=== PATIENT | male | born 1965 | race Two or more races ===

== ENCOUNTER 2016-08-31 11:13 | Emergency (ER) | payer BC, OTHER ==
[~2016-08-31] VITALS: Ht 170.2 cm; Wt 80.7 kg
[2016-08-31] MEDS ORDERED: LIDOCAINE 1% / SOD BICARB 8.4% 20 ML VIAL. IJ ONE (12:15)
[2016-08-31] MEDS ORDERED: HYDROCODONE/APAP 5/325MG TABLET. PO ONE (12:15)
[2016-08-31] MEDS ORDERED: DIPHTH,PERTUSS(ACELL),TET TOX 0.5 ML DISP.SYRIN. VAX IM ONE (12:30)
--- NOTE | 2016-08-31 12:35 | RAD ---
Three-view right hand radiographs 08/31/2016 Clinical history: Right hand pain post injury. PA, lateral and oblique digital radiographs of the right hand were obtained. No fracture or dislocation of the right hand is seen. No radiopaque foreign body is noted. Mild degenerative changes are seen scattered throughout the interphalangeal joints of the right hand. Mild degenerative changes are seen involving the radiocarpal joint and first carpometacarpal joint. Impression: No acute fracture or dislocation of the right hand is seen.
--- NOTE | 2016-08-31 13:51 | PHYS DOC ---
Past Medical History Past Medical History: No Pertinent History Past Surgical History: No Surgical History Additional Information: PT REPORTS HE USES CHEWING TOBACCO. Alcohol Use: None Drug Use: None Adult General Chief Complaint Chief Complaint: LACERATION/AVULSION HPI HPI Patient is a 51 year old male who presents with right pinky finger laceration. Patient states he was working with a saw when the saw slipped and cut him on the right pinky finger. Review of Systems Review of Systems Constitutional: Denies fever or chills [] Eyes: Denies change in visual acuity, redness, or eye pain [] HENT: Denies nasal congestion or sore throat [] Musculoskeletal: Denies back pain or joint pain [] Integument: Right pinky finger laceration Neurologic: Denies headache, focal weakness or sensory changes [] Endocrine: Denies polyuria or polydipsia [] Current Medications Current Medications Current Medications Medications (Trade) Dose Ordered Sig/[facility] Start Time Stop Time Status Last Admin Dose Admin Acetaminophen/ Hydrocodone Bitart (Lortab 5/325) 1 tab 1X ONCE 08/31/16 12:15 08/31/16 12:16 DC 08/31/16 12:32 1 TAB Diphtheria/ Tetanus/Acell Pertussis (Boostrix) 0.5 ml ONCE ONCE 08/31/16 12:30 08/31/16 12:31 DC 08/31/16 12:36 0.5 ML Lidocaine/Sodium Bicarbonate (Buffered Lidocaine 1%) 20 ml 1X ONCE 08/31/16 12:15 08/31/16 12:16 DC 08/31/16 12:31 20 ML Allergies Allergies Allergies Coded Allergies Type Severity Reaction Last Updated Verified No Known Drug Allergies 04/18/14 No Physical Exam Physical Exam Constitutional: Well developed, well nourished, no acute distress, non-toxic appearance. [] HENT: Normocephalic, atraumatic, bilateral external ears normal, oropharynx moist, no oral exudates, nose normal. [] Eyes: PERRLA, EOMI, conjunctiva normal, no discharge. [] Skin: Right lateral pinky finger with a laceration approximately 4 cm long, this no tendon involvement. Full range of motion to the right pinky finger, adequate flexion and extension of the right pinky finger MIP, PIP, and DIP joints. +2 right radial pulse. Adequate ulnar sensation to the right pinky finger. Cap refill less than 2 seconds the right pinky finger. Back: No tenderness, no CVA tenderness. [] Extremities: No tenderness, no cyanosis, no clubbing, ROM intact, no edema. [] Neurologic: Alert and oriented X 3, normal motor function, normal sensory function, no focal deficits noted. [] Psychologic: Affect normal, judgement normal, mood normal. [] Current Patient Data Vital Signs Vital Signs Date Time Temp Pulse Resp B/P Pulse Ox O2 Delivery O2 Flow Rate FiO2 08/31/16 12:32 Room Air 08/31/16 11:25 98.3 68 16 99 98.3 EKG EKG [] Radiology/Procedures Radiology/Procedures Indication: []Right pinky finger laceration Procedure: The patient was placed in the appropriate position and anesthesia around the laceration was 1% buffered lidocaine. The laceration was cleaned with 100 ML of normal saline and 30 mL of Betadine. The laceration was closed with 8 interrupted sutures using 5. 0 Ethilon. The laceration was covered with nonstick dressing. Total repaired wound length: Approximately 4 cm long Other Items: None The patient tolerated the procedure well Complications: None Repaired done by me Course & Med Decision Making Course & Med Decision Making Pertinent Labs and Imaging studies reviewed. (See chart for details) Patient has right pinky finger laceration after being cut with a saw. Right hand x-rays interpreted by radiologist are negative for any acute findings. Patient's laceration was closed by me as noted in procedures. He was provided wound care instructions as well as return precautions. Follow-up with PCP or the ED 7-10 days for suture removal. Dragon Disclaimer Dragon Disclaimer This electronic medical record was generated, in whole or in part, using a voice recognition dictation system. Departure Departure Impression: Primary Impression: Laceration of right little finger Disposition: HOME, SELF-CARE Condition: STABLE Referrals: NO PCP (PCP) Follow-up with the ED or primary care doctor in 7-10 days for suture removal Patient Instructions: Laceration Care, Adult Additional Instructions: You have right pinky finger laceration, keep it clean and dry. Apply Neosporin to eat twice a day. Monitor it for signs and symptoms of infection including increased redness warmth or odor drainage from the area and return to the ED if they occur. Follow-up with your doctor or the ED in 7-10 days for suture removal. GISELL MINAYA APRN Aug 31, 2016 13:51
[2016-08-31 13:58] VITALS: BP 122/61
== END 2016-08-31 13:58 | disposition home or self-care (01) ==
LOC: ER 11:13
DX: S61.212A Laceration without foreign body of right middle finger without damage to nail, initial encounter (principal); F17.220 Nicotine dependence, chewing tobacco, uncomplicated; W27.8XXA Contact with other nonpowered hand tool, initial encounter; Y93.89 Activity, other specified; Y99.8 Other external cause status; Y92.89 Other specified places as the place of occurrence of the external cause
CPT/HCPCS: 12002; 73130; 90471; 90715; 99284-25

== ENCOUNTER 2017-03-22 06:10 | Emergency (ER) | payer BC, OTHER ==
[~2017-03-22] VITALS: Ht 170.2 cm; Wt 80.7 kg
--- NOTE | 2017-03-22 07:28 | PHYS DOC ---
Past Medical History Past Medical History: No Pertinent History Past Surgical History: No Surgical History Alcohol Use: None Drug Use: None Adult General Chief Complaint Chief Complaint: Neck Pain HPI HPI Patient is a 51 year old male who presents to the ED complaining of neck pain 2 days. Patient states he woke up with right-sided neck pain. Thinks he may have slept wrong. 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 Describes as sharp, Rates 8/10. Denies trauma, injury, fever , photophobia, dizziness, vision changes, nausea/vomiting, chest pain or shortness of breath. Review of Systems Review of Systems Constitutional: Denies fever or chills [] Eyes: Denies change in visual acuity, redness, or eye pain [] HENT: Denies nasal congestion or sore throat [] Respiratory: Denies cough or shortness of breath [] Cardiovascular: No additional information not addressed in HPI [] GI: Denies abdominal pain, nausea, vomiting, bloody stools or diarrhea [] : Denies dysuria or hematuria [] Musculoskeletal: Denies back pain or joint pain [] Integument: Denies rash or skin lesions [] Neurologic: Denies headache, focal weakness or sensory changes [] Endocrine: Denies polyuria or polydipsia [] Current Medications Current Medications Current Medications Medications (Trade) Dose Ordered Sig/[facility] Start Time Stop Time Status Last Admin Dose Admin Ketorolac Tromethamine (Toradol Im) 60 mg 1X ONCE 03/22/17 07:30 03/22/17 07:31 DC 03/22/17 07:43 60 MG Orphenadrine Citrate (Norflex) 60 mg 1X ONCE 03/22/17 07:30 03/22/17 07:31 DC 03/22/17 07:43 60 MG Allergies Allergies Allergies Coded Allergies Type Severity Reaction Last Updated Verified No Known Drug Allergies 04/18/14 No Physical Exam Physical Exam Constitutional: Well developed, well nourished, no acute distress, non-toxic appearance. [] HENT: Normocephalic, atraumatic, bilateral external ears normal, oropharynx moist, no oral exudates, nose normal. [] Eyes: PERRLA, EOMI, conjunctiva normal, no discharge. [] Neck: MILD RIGHT LATERAL NECK TENDERNESS OVER STERNOCLEIDOMASTOID MUSCLE. DROM TO RIGHT. NO NUCHAL RIGIDITY. supple, no stridor. [] Cardiovascular:Heart rate regular rhythm, no murmur [] Lungs & Thorax: Bilateral breath sounds clear to auscultation [] Abdomen: Bowel sounds normal, soft, no tenderness, no masses, no pulsatile masses. [] Skin: Warm, dry, no erythema, no rash. [] Back: No tenderness, no CVA tenderness. [] Extremities: No tenderness, no cyanosis, no clubbing, ROM intact, no edema. [] Neurologic: Alert and oriented X 3, normal motor function, normal sensory function, no focal deficits noted. [] Psychologic: Affect normal, judgement normal, mood normal. [] Current Patient Data Vital Signs Vital Signs Date Time Temp Pulse Resp B/P (MAP) Pulse Ox O2 Delivery O2 Flow Rate FiO2 03/22/17 10:19 64 18 105/65 (78) 99 Room Air 03/22/17 07:09 98.1 98.1 EKG EKG [] Radiology/Procedures Radiology/Procedures PROCEDURE: CT CERVICAL SPINE WO CONTRAST Examination: CT cervical spine without contrast History: History of neck pain. Comparison: None available Technique: Axial CT images of the cervical spine was performed without contrast. Coronal and sagittal reformats were performed. PQRS Compliance Statement: One or more of the following individualized dose reduction techniques were utilized for this examination: 1. Automated exposure control 2. Adjustment of the mA and/or kV according to patient size 3. Use of iterative reconstruction technique Findings: The vertebral body heights are maintained. No evidence of listhesis identified. The bilateral facets are well aligned. There is no obvious acute fracture identified. The lateral masses of C1 are aligned with C2 vertebra. The C2 dens appears intact. Mild intervertebral disc height loss identified throughout the cervical spine. Tiny lucencies identified in the C2 vertebra, C5 vertebra, C7 vertebral bodies could be osseous demineralization or lytic foci due to multiple myeloma. The apical lungs are clear. Impression: 1. No evidence of fracture. 2. Tiny lucencies identified in the C2 vertebra, C5 vertebra, C7 vertebral bodies could be osseous demineralization or lytic foci due to multiple myeloma. Follow-up nonemergent MRI can be considered. 3. Mild degenerative changes cervical spine.[] Course & Med Decision Making Course & Med Decision Making Pertinent Labs and Imaging studies reviewed. (See chart for details) []Discussed imaging with patient. Will treat for torticollis like symptoms. Patient advised of follow-up with his PCP outpatient for MRI as recommended nonemergently by the radiologist (Language line used) Patient states he has a PCP that he can follow-up with. Patient's pain improved. Vital stable, no acute distress. Discussed the importance of follow-up with patient. Discussed reasons to return to the ED. Patient understands and agrees with plan. Dragon Disclaimer Dragon Disclaimer This electronic medical record was generated, in whole or in part, using a voice recognition dictation system. Departure Departure Impression: Primary Impression: Neck pain Disposition: HOME, SELF-CARE Condition: STABLE Referrals: NO PCP (PCP) SHARIFA DOE MD Patient Instructions: Torticollis, Acute Scripts Hydrocodone/Apap 5-325 (NORCO 5-325 TABLET) 1 Each Tablet 1 TAB PO TID, #10 TAB Prov: ROXANA RAE 03/22/17 ROXANA RAE Mar 22, 2017 07:28
[2017-03-22] MEDS ORDERED: ORPHENADRINE CITRATE 60 MG/2 ML VIAL. IM ONE (07:30)
[2017-03-22] MEDS ORDERED: KETOROLAC 60 MG/2 ML INJ. IM ONE (07:30)
--- NOTE | 2017-03-22 07:44 | RAD ---
Examination: 3 views of the cervical spine History: History of cervical pain Comparison: None available. Findings: The vertebral body heights are maintained. The facets are well aligned. On the lateral view, there is lucency identified in the posterior arch of the C1 vertebra. No evidence of prevertebral soft tissue swelling identified. The lateral masses of C1 appear to align with C2 vertebra. The C2 dens appears intact. Impression: Lucency identified in the posterior arch of the C1 vertebra best seen on the lateral view could be congenital nonfusion or fracture. CT cervical spine may be useful for further evaluation.
--- NOTE | 2017-03-22 09:39 | RAD ---
Examination: CT cervical spine without contrast History: History of neck pain. Comparison: None available Technique: Axial CT images of the cervical spine was performed without contrast. Coronal and sagittal reformats were performed. PQRS Compliance Statement: One or more of the following individualized dose reduction techniques were utilized for this examination: 1. Automated exposure control 2. Adjustment of the mA and/or kV according to patient size 3. Use of iterative reconstruction technique Findings: The vertebral body heights are maintained. No evidence of listhesis identified. The bilateral facets are well aligned. There is no obvious acute fracture identified. The lateral masses of C1 are aligned with C2 vertebra. The C2 dens appears intact. Mild intervertebral disc height loss identified throughout the cervical spine. Tiny lucencies identified in the C2 vertebra, C5 vertebra, C7 vertebral bodies could be osseous demineralization or lytic foci due to multiple myeloma. The apical lungs are clear. Impression: 1. No evidence of fracture. 2. Tiny lucencies identified in the C2 vertebra, C5 vertebra, C7 vertebral bodies could be osseous demineralization or lytic foci due to multiple myeloma. Follow-up nonemergent MRI can be considered. 3. Mild degenerative changes cervical spine.
[2017-03-22] MEDS ORDERED: HYDR-971 PO (09:49)
[2017-03-22 10:19] VITALS: BP 105/65
== END 2017-03-22 10:30 | disposition home or self-care (01) ==
LOC: ER 06:10
DX: M54.2 Cervicalgia (principal)
CPT/HCPCS: 72040; 72125; 96372; 99284; J1885; J2360

== ENCOUNTER → 2017-03-28 | Outpatient (CLI) | payer BC ==
[~2017-03-28] MED LIST: HYDR-971 PO
--- NOTE | 2017-03-28 11:06 | KCIC ---
MRI cervical spine without contrast 03/28/2017 MRI of lumbar spine without contrast INDICATION: Neck pain, abnormal CT. Low back pain. COMPARISON: CT cervical spine March 22, 2017 TECHNIQUE: Multiplanar, multisequence MR imaging of the cervical spine was performed. Multiplanar, multisequence MR imaging of the lumbar spine was performed. FINDINGS: Cervical spine: Alignment of the cervical spine is normal. Vertebral body heights are maintained. No evidence for acute fracture. At C2, C5 and C7, there are T1 hyperintense and T2 hyperintense foci suggestive of tiny osseous hemangiomas. Disc heights are maintained. Cord signal is normal in all sequences. Posterior fossa is normal in appearance. Vertebral artery flow voids are maintained. There is no prevertebral soft tissue swelling. No paraspinal abnormality is identified. C2-C3: Disc is normal in configuration. Facets are normal in appearance. No significant uncovertebral joint arthropathy. No spinal canal stenosis. C3-C4: Minimal posterior disc osteophyte complex asymmetric to the left. No significant facet arthropathy. No uncovertebral joint arthropathy. Mild left neural foraminal stenosis. No spinal canal stenosis. C4-C5: Disc is normal in configuration. No significant facet or uncovertebral joint arthropathy. No neuroforaminal or spinal canal stenosis. C5-C6: Disc is normal in configuration. Facets are normal in appearance. No uncovertebral joint arthropathy. No neuroforaminal or spinal canal stenosis. C6-C7: Disc is normal in configuration. No significant facet or uncovertebral joint arthropathy. No neural foraminal or spinal canal stenosis. C7-T1: Disc is normal in configuration. No significant facet or uncovertebral joint arthropathy. No neuroforaminal or spinal canal stenosis. Lumbar spine: Alignment of the lumbar spine is normal. There is disc desiccation at L4-L5 and L5-S1. The cord terminates at L1. Distal cord signal is normal in all sequences. Vertebral body heights are maintained. No evidence for acute fracture. Modic type II endplate degenerative changes are identified involving the anterior superior endplates of L3 and L4. There is anterior marginal osteophytosis at L5-S1 with Modic type II endplate degenerative changes. Visualized portions of the retroperitoneum appear normal. The abdominal aorta is normal in course and caliber. There is a 7 mm T2 hyperintense, T1 iso to hyperintense focus involving the left L4 vertebral body suggestive of an osseous hemangioma. L2-L3: Disc is normal in configuration. Mild facet arthropathy. No neuroforaminal or spinal canal stenosis. L3-L4: Disc is normal in configuration. Mild facet arthropathy. No neuroforaminal or spinal canal stenosis. L4-L5: Minimal disc bulge. [id number] facet arthropathy. No significant neuroforaminal or spinal canal stenosis. L5-S1: There is a central disc protrusion. Moderate left facet arthropathy and mild right facet arthropathy. Moderate left neural foraminal stenosis. No spinal canal stenosis. IMPRESSION: 1. Tiny T1 hyperintense foci at C2, C5 and C7 are favored to represent benign etiology such as osseous hemangiomas. 2. Mild degenerative changes of the cervical spine, as detailed above. 3. Mild degenerative changes of the lumbar spine, most prominent at L4-L5 and L5-S1, as detailed above. Electronically signed by: Mary Jane Small MD (03/28/2017 11:03 AM) [id number]
--- NOTE | 2017-03-30 08:39 | KCIC ---
ADDENDUM BEGINS: THIS IS AN ADMINISTRATIVE CORRECTION DUE TO AN INTERFACE ISSUE. THE FOLLOWING IS A COPY OF THE ORIGINAL REPORT ON ADDENDUM ENDS MRI cervical spine without contrast 03/28/2017 MRI of lumbar spine without contrast INDICATION: Neck pain, abnormal CT. Low back pain. COMPARISON: CT cervical spine March 22, 2017 TECHNIQUE: Multiplanar, multisequence MR imaging of the cervical spine was performed. Multiplanar, multisequence MR imaging of the lumbar spine was performed. FINDINGS: Cervical spine: Alignment of the cervical spine is normal. Vertebral body heights are maintained. No evidence for acute fracture. At C2, C5 and C7, there are T1 hyperintense and T2 hyperintense foci suggestive of tiny osseous hemangiomas. Disc heights are maintained. Cord signal is normal in all sequences. Posterior fossa is normal in appearance. Vertebral artery flow voids are maintained. There is no prevertebral soft tissue swelling. No paraspinal abnormality is identified. C2-C3: Disc is normal in configuration. Facets are normal in appearance. No significant uncovertebral joint arthropathy. No spinal canal stenosis. C3-C4: Minimal posterior disc osteophyte complex asymmetric to the left. No significant facet arthropathy. No uncovertebral joint arthropathy. Mild left neural foraminal stenosis. No spinal canal stenosis. C4-C5: Disc is normal in configuration. No significant facet or uncovertebral joint arthropathy. No neuroforaminal or spinal canal stenosis. C5-C6: Disc is normal in configuration. Facets are normal in appearance. No uncovertebral joint arthropathy. No neuroforaminal or spinal canal stenosis. C6-C7: Disc is normal in configuration. No significant facet or uncovertebral joint arthropathy. No neural foraminal or spinal canal stenosis. C7-T1: Disc is normal in configuration. No significant facet or uncovertebral joint arthropathy. No neuroforaminal or spinal canal stenosis. Lumbar spine: Alignment of the lumbar spine is normal. There is disc desiccation at L4-L5 and L5-S1. The cord terminates at L1. Distal cord signal is normal in all sequences. Vertebral body heights are maintained. No evidence for acute fracture. Modic type II endplate degenerative changes are identified involving the anterior superior endplates of L3 and L4. There is anterior marginal osteophytosis at L5-S1 with Modic type II endplate degenerative changes. Visualized portions of the retroperitoneum appear normal. The abdominal aorta is normal in course and caliber. There is a 7 mm T2 hyperintense, T1 iso to hyperintense focus involving the left L4 vertebral body suggestive of an osseous hemangioma. L2-L3: Disc is normal in configuration. Mild facet arthropathy. No neuroforaminal or spinal canal stenosis. L3-L4: Disc is normal in configuration. Mild facet arthropathy. No neuroforaminal or spinal canal stenosis. L4-L5: Minimal disc bulge. [id number] facet arthropathy. No significant neuroforaminal or spinal canal stenosis. L5-S1: There is a central disc protrusion. Moderate left facet arthropathy and mild right facet arthropathy. Moderate left neural foraminal stenosis. No spinal canal stenosis. IMPRESSION: 1. Tiny T1 hyperintense foci at C2, C5 and C7 are favored to represent benign etiology such as osseous hemangiomas. 2. Mild degenerative changes of the cervical spine, as detailed above. 3. Mild degenerative changes of the lumbar spine, most prominent at L4-L5 and L5-S1, as detailed above. Electronically signed by: Yesi Small MD (03/28/2017 11:03 AM) [id number] DICTATED and SIGNED BY: YESI SMALL MD DATE: 03/28/17 1021 MTDD
== END | disposition home or self-care (01) ==
LOC: MERGE 08:13 → KCIC MRI 08:13
PROVIDERS: ATTEND Family Medicine
DX: M47.896 Other spondylosis, lumbar region (principal); M47.892 Other spondylosis, cervical region; D18.09 Hemangioma of other sites
CPT/HCPCS: 72141; 72148

== ENCOUNTER → 2017-04-20 | Outpatient (CLI) | payer BC ==
[2017-03-22 10:19] VITALS: BP 105/65
[~2017-04-20] MED LIST changes: +CONTRAST GIVEN MC PRN; +IOHEXOL 240 MG/ML 50ML VIAL. PO ONE; +IOHEXOL 300 MG/ML 75 ML VIAL IV ONE
--- NOTE | 2017-04-20 10:58 | RAD ---
Metastatic skeletal survey, 04/20/2017: History: Neck lesions Multiple radiographs were obtained with the following findings delineated: 1. A PA view of the chest reveals no destructive bone lesion. The heart size is normal. The lungs are clear. 2. A lateral view of the skull shows no abnormality. 3. AP and lateral views of the cervical spine reveal no fracture or destructive bony lesion. Tiny bony lucencies seen on the previous CT cervical spine exam are not clearly visible radiographically. 4. AP and lateral views of the thoracic and lumbar spine reveal no fracture or destructive bony lesion. There are mild scattered marginal spurs. 5. An AP view of the pelvis reveals no fracture or destructive bony lesion. There are sclerotic changes at the sacroiliac joints. There is mild spurring at the hip joints. 6. AP views of both humeri and forearms reveal no destructive bony lesion. 7. AP views of both femurs and lower legs reveal no destructive bony lesion. IMPRESSION: 1. Mild scattered degenerative changes. 2. No significant radiographic abnormality is detected.
--- NOTE | 2017-04-20 13:31 | RAD ---
Examination: Whole-body bone scan History: History of neck lesion. Comparison: CT chest abdomen pelvis similar exam Technique: 25.0 mCi of technetium 99m MDP was injected IV and whole body bone scan was performed in anterior and posterior projections. Findings: There is no evidence of abnormal focal radiotracer uptake identified throughout the visualized skeleton. Faint focal radiotracer uptake identified throughout the visualized thoracolumbar spine likely degeneration. Impression: No evidence of osteoblastic skeletal metastasis.
--- NOTE | 2017-04-20 13:52 | RAD ---
Examination: CT chest abdomen pelvis with IV contrast History: History of lesion of the neck Comparison: None available Technique: Axial CT images of the chest abdomen pelvis with IV contrast. Coronal and sagittal reformats are performed PQRS Compliance Statement: One or more of the following individualized dose reduction techniques were utilized for this examination: 1. Automated exposure control 2. Adjustment of the mA and/or kV according to patient size 3. Use of iterative reconstruction technique Findings: The visualized thyroid gland grossly appears unremarkable. Minimal irregularity identified in the trachea could be secondary to secretions. The heart size grossly appears unremarkable. No radiological significant mediastinal or axillary lymphadenopathy identified. Minimal paraseptal emphysematous is identified apical lung. Minimal atelectasis is bibasal lungs. Small 4 mm nodularity for the left lower lobe of the lung. There is a small 5 mm nodule in the right lower lobe of the lung. No evidence of free air identified in the abdomen. The visualized liver, spleen, adrenals grossly appears unremarkable. The gallbladder is mildly distended. The stomach is mildly distended. The visualized pancreas grossly appears unremarkable. The small bowel is nondilated. The appendix is normal. There is mild thickened appearance of the wall of the transverse colon with no evidence of rudimentary surrounding intermediate fat stranding Urinary bladder is mildly distended. The bilateral kidneys enhance symmetrically. Punctate 1 mm intrarenal distal calculus identified in the left kidney. Minimal prominent appearing left renal pelvis. The caliber of the aorta grossly appears unremarkable. Mild degenerative changes identified in the visualized thoracolumbar spine. Impression: 1. Punctate 1 mm intrarenal collecting system calculus left kidney. 2. Minimal prominent appearing left renal pelvis, nonspecific. 3. Mild thickened appearance of the transverse colon probably due to minimal distention or underlying mucosal pathology is not completely excluded. Follow-up colonoscopy can be considered if this was not performed. 4. 4 mm pulmonary nodule left lower lobe of the lung and 5 mm pulmonary nodule identified in the right lower lobe of the lung. Follow-up per Fleischner Society guidelines with optional CT chest in 12 months.
== END ==
LOC: NM 07:57
PROVIDERS: ATTEND Internal Medicine Hematology & Oncology
DX: J43.8 Other emphysema (principal); N20.0 Calculus of kidney; R91.1 Solitary pulmonary nodule; R91.8 Other nonspecific abnormal finding of lung field; F17.200 Nicotine dependence, unspecified, uncomplicated
CPT/HCPCS: 71260; 74177; 77075; 78306; 96374; A9503; Q9966; Q9967

== ENCOUNTER → 2017-08-04 | Outpatient (CLI) | payer BC | END | disposition home or self-care (01) | LOC: CT 08:18 | DX: R91.8 Other nonspecific abnormal finding of lung field (principal) | CPT/HCPCS: 71250 ==

== ENCOUNTER 2018-06-08 15:20 | Emergency (ER) | payer BC ==
[~2018-06-08] VITALS: Ht 170.2 cm; Wt 83.9 kg
[~2018-06-08 15:20] MED LIST changes: -CONTRAST GIVEN MC PRN; +HYDR-3164 PO; -HYDR-971 PO; -IOHEXOL 240 MG/ML 50ML VIAL. PO ONE; -IOHEXOL 300 MG/ML 75 ML VIAL IV ONE
[2018-06-08] MEDS ORDERED: IBUPROFEN 600 MG TABLET. PO ONE (16:45)
[2018-06-08] MEDS ORDERED: diazePAM 5 MG TABLET PO ONE (16:45)
--- NOTE | 2018-06-08 16:51 | PHYS DOC ---
Past Medical History Past Medical History: No Pertinent History Past Surgical History: No Surgical History Additional Information: 3 cigarettes daily Alcohol Use: None Drug Use: None Adult General Chief Complaint Chief Complaint: Neck Pain HPI HPI Patient is a 52 year old male who presents with went to [facility] urgent care this morning after he awoke at 1 AM with right-sided neck pain and stiffness and ear pain. states that the patient last couple weeks has been sick and coughing a lot but that has since gotten better. They state that the patient has taken one Flexeril and one dose of Augmentin as he was diagnosed with muscle spasms in the neck and an ear infection on the right side. Patient states that he is not feeling any better yet. Afebrile. states that back in February he had the same neck issue and they gave him some medication and it made him feel better. Patient's neck is stiff and spasming and is very painful to patient removed. Patient is leaning his head to the shoulder and does not move it back to the right side. He denies fevers, photophobia, chest pain, shortness of air, dizziness, weaknesses, numbness or tingling, or visual changes. Review of Systems Review of Systems Constitutional: Denies fever or chills [] Eyes: Denies change in visual acuity, redness, or eye pain [] HENT: Denies nasal congestion or sore throat [] Respiratory: Denies cough or shortness of breath [] Cardiovascular: No additional information not addressed in HPI [] GI: Denies abdominal pain, nausea, vomiting, bloody stools or diarrhea [] : Denies dysuria or hematuria [] Musculoskeletal:Right sided neck pain Denies back pain or joint pain [] Integument: Denies rash or skin lesions [] Neurologic: Denies headache, focal weakness or sensory changes [] Endocrine: Denies polyuria or polydipsia [] All other systems were reviewed and found to be within normal limits, except as documented in this note. Current Medications Current Medications Current Medications Medications (Trade) Dose Ordered Sig/Caprice Start Time Stop Time Status Last Admin Dose Admin Diazepam (Valium) 5 mg 1X ONCE 06/08/18 16:45 06/08/18 16:46 DC 06/08/18 16:47 5 MG Ibuprofen (Motrin) 600 mg 1X ONCE 06/08/18 16:45 06/08/18 16:46 DC 06/08/18 16:47 600 MG Allergies Allergies Allergies Coded Allergies Type Severity Reaction Last Updated Verified No Known Drug Allergies 04/18/14 No Physical Exam Physical Exam Constitutional: Well developed, well nourished, no acute distress, non-toxic appearance. [] HENT: Normocephalic, atraumatic, bilateral external ears normal, oropharynx moist, no oral exudates, nose normal. [] Eyes: PERRLA, EOMI, conjunctiva normal, no discharge. [] Neck: not intact range of motion, right sided tenderness, supple, no stridor. [ ] Cardiovascular:Heart rate regular rhythm, no murmur [] Lungs & Thorax: Bilateral breath sounds clear to auscultation [] Abdomen: Bowel sounds normal, soft, no tenderness, no masses, no pulsatile masses. [] Skin: Warm, dry, no erythema, no rash. [] Back: No tenderness, no CVA tenderness. [] Extremities: No tenderness, no cyanosis, no clubbing, ROM intact, no edema. [] Neurologic: Alert and oriented X 3, normal motor function, normal sensory function, no focal deficits noted. [] Psychologic: Affect normal, judgement normal, mood normal. [] Current Patient Data Vital Signs Vital Signs Date Time Temp Pulse Resp B/P (MAP) Pulse Ox O2 Delivery O2 Flow Rate FiO2 06/08/18 15:39 98.6 72 16 126/71 (89) 98 Room Air 98.6 EKG EKG [] Radiology/Procedures Radiology/Procedures CT right neck Impressions: [facility] [address] [place] [address] IMAGING REPORT Signed PATIENT: MELI SPENCER ACCOUNT: [id number] : 1965 LOCATION: ER AGE: 52 SEX: M EXAM STATUS: REG ER ORD. PHYSICIAN: BRITTNEY GUERIN APRN REASON: NECK PAIN PROCEDURE: CT CERVICAL SPINE WO CONTRAST Cervical spine CT without contrast History: Right-sided neck pain Technique: Noncontrast CT imaging was performed of the cervical spine. Multiplanar images are reviewed. Exposure: One or more of the following individualized dose reduction techniques were utilized for this examination: 1. Automated exposure control 2. Adjustment of the mA and/or kV according to patient size 3. Use of iterative reconstruction technique. Comparison: March 22, 2017 CT cervical spine exam Findings: No cervical spine acute fracture is identified. Vertebral body stature is preserved. AP is alignment is within normal limits. Atlanto-axial distance is within normal limits. There is appropriate alignment of lateral masses of C1 relative to C2. Occipital condylar-C1 relationship is maintained. There is mild dextroscoliosis. There is multilevel cervical facet degenerative change. There is also uncovertebral degenerative change on the left at C3-4, contributes to fairly severe narrowing of the left C3-4 neural foramen. There is mild narrowing of the left C4-5 neural foramen. Right neural foramina are not significantly narrowed. Evaluation for disc abnormality is limited on this nonmyelographic exam. Impression: 1. Right neural foramina are not significantly narrowed, severe narrowing of the left C3-4 neural foramen due to facet and uncovertebral degenerative change. There is mild dextroscoliosis of the cervical spine. Electronically signed by: Erinn Lubin MD (06/08/2018 5:16 PM) [facility] DICTATED and SIGNED BY: ERINN LUBIN MD DATE: 06/08/18 1712 Course & Med Decision Making Course & Med Decision Making Patient is a 52 year old male who presents with went to [facility] urgent care this morning after he awoke at 1 AM with right-sided neck pain and stiffness and ear pain. states that the patient last couple weeks has been sick and coughing a lot but that has since gotten better. They state that the patient has taken one Flexeril and one dose of Augmentin as he was diagnosed with muscle spasms in the neck and an ear infection on the right side. Patient states that he is not feeling any better yet. Afebrile. states that back in February he had the same neck issue and they gave him some medication and it made him feel better. Patient's neck is stiff and spasming and is very painful to patient removed. Patient is leaning his head to the shoulder and does not move it back to the right side. He denies fevers, photophobia, chest pain, shortness of air, dizziness, weaknesses, numbness or tingling, or visual changes. Lungs are clear to auscultation all lobes. Patient does have a right- sided ear infection with a reddened tympanic in the left side ear tympanic looks reddened 2. Bilateral lung auscultation clear in all lobes. Abdomen soft and nontender. Patient denies abdominal pain, nausea, vomiting, diarrhea. Has no swelling in any extremities. Skin is pink warm and dry. Alert and oriented. Patient's urinalysis pain to now 10. It is coming and going and is cramping and spasming in his neck. It is tender to touch but there is no deformity or swelling of the neck. There are no lymph nodes felt. There is pink and without exudates. Patient is given a dose of Valium and ibuprofen in the ED. Also decided to CT his cervical spine because the CT that was done in February showed 1. No evidence of fracture. 2. Tiny lucencies identified in the C2 vertebra, C5 vertebra, C7 vertebral bodies could be osseous demineralization or lytic foci due to multiple myeloma. Follow-up nonemergent MRI can be considered. 3. Mild degenerative changes cervical spine. Patient's CT cervical spine shows 1. Right neural foramina are not significantly narrowed, severe narrowing of the left C3-4 neural foramen due to facet and uncovertebral degenerative change. There is mild dextroscoliosis of the cervical spine. Patient will be sent home and told not to take the Flexeril but the pressure to be changed to Valium and started taking ibuprofen. Patient should call his primary care in the morning and let them know about what is going on and what medications he is now on. Patient is taken medications as prescribed and try using a heating pad. Patient does need to follow-up with his primary care as soon as possible. Patient will be treated for torticollis-like symptoms. [] Dragon Disclaimer Dragon Disclaimer This electronic medical record was generated, in whole or in part, using a voice recognition dictation system. Departure Departure Impression: Primary Impression: Neck pain Disposition: HOME, SELF-CARE Condition: STABLE Referrals: MAGGIE JAIMES MD (PCP) Patient Instructions: Torticollis, Acute Additional Instructions: Primary care in the morning. Follow-up as soon as possible. Take medications as prescribed. Also try using a heating pad. Scripts Diazepam (VALIUM) 5 Mg Tablet 5 MG PO BID, #15 TAB Prov: BRITTNEY GUERIN APRN 06/08/18 Ibuprofen (IBUPROFEN) 600 Mg Tablet 600 MG PO PRN Q6HRS PRN for INFLAMMATION, #20 TAB Prov: BRITTNEY GUERIN GEARMAN 06/08/18 BRITTNEY GUERIN APRN Jun 08, 2018 16:51
--- NOTE | 2018-06-08 17:20 | RAD ---
Cervical spine CT without contrast History: Right-sided neck pain Technique: Noncontrast CT imaging was performed of the cervical spine. Multiplanar images are reviewed. Exposure: One or more of the following individualized dose reduction techniques were utilized for this examination: 1. Automated exposure control 2. Adjustment of the mA and/or kV according to patient size 3. Use of iterative reconstruction technique. Comparison: March 22, 2017 CT cervical spine exam Findings: No cervical spine acute fracture is identified. Vertebral body stature is preserved. AP is alignment is within normal limits. Atlanto-axial distance is within normal limits. There is appropriate alignment of lateral masses of C1 relative to C2. Occipital condylar-C1 relationship is maintained. There is mild dextroscoliosis. There is multilevel cervical facet degenerative change. There is also uncovertebral degenerative change on the left at C3-4, contributes to fairly severe narrowing of the left C3-4 neural foramen. There is mild narrowing of the left C4-5 neural foramen. Right neural foramina are not significantly narrowed. Evaluation for disc abnormality is limited on this nonmyelographic exam. Impression: 1. Right neural foramina are not significantly narrowed, severe narrowing of the left C3-4 neural foramen due to facet and uncovertebral degenerative change. There is mild dextroscoliosis of the cervical spine. Electronically signed by: Silvio Macias MD (06/08/2018 5:16 PM) [facility]
[2018-06-08] MEDS ORDERED: DIAZ5TAB PO (17:38)
[2018-06-08] MEDS ORDERED: IBUP-1007 PO (17:38)
[2018-06-08 17:41] VITALS: BP 122/67
== END 2018-06-08 17:50 | disposition home or self-care (01) ==
LOC: ER 15:20
DX: M43.6 Torticollis (principal); M54.2 Cervicalgia; M48.02 Spinal stenosis, cervical region; H92.01 Otalgia, right ear; F17.210 Nicotine dependence, cigarettes, uncomplicated; R05 Cough
CPT/HCPCS: 72125; 99284